=== PATIENT | female | born 1945 | race Caucasian/White ===

== ENCOUNTER 2016-06-25 00:34 | Emergency (ER) | payer MEDICARE, MEDICAID ==
[~2016-06-25] VITALS: Ht 162.6 cm; Wt 56.2 kg
[2016-06-25 00:54] VITALS: BP 206/84
--- NOTE | 2016-06-25 00:54 | NUR ---
PT BIB FAMILY PT AMBUALTORY TO ER BED 1 C/OHIGH BLOOD PRESSURE, TAKES: CRESTOR 5MG, BYSTOLIC 5MG, BENIKAR 40MG. PT AOX4 RR EVEN AND UNLABORED. NO SOB NOTED. NAD NOTED. NO NVD AT THIS TIME. PT NOT DIAPHORETIC. PT GOWNED AND PLACED ON MONTIOR. DR. BOWDEN AT BEDSIDE FOR EVAL.
== END 2016-06-25 01:15 | disposition home or self-care (01) ==
LOC: ER 00:34
DX: I10 Essential (primary) hypertension (principal)
CPT/HCPCS: A4606; Z7502; Z7610

== ENCOUNTER 2020-04-23 15:39 | Emergency (ER) | payer MEDICARE, OTHER ==
[~2020-04-23] VITALS: Ht 157.5 cm; Wt 57.2 kg
[2020-04-23 15:47] VITALS: BP 171/72
--- NOTE | 2020-04-23 15:50 | NUR ---
The patient is in ER for c/o left knee pain started 3days ago worse now/swollen. Patient denies any trauma or injury. Denies SOB. Will continue to monitor.
[2020-04-23] MEDS ORDERED: IBUPROFEN 600 MG TABLET PO ONE (16:30)
[2020-04-23] MEDS ORDERED: ACETAMINOPHEN ES 500 MG TABLET PO ONE (16:30)
[2020-04-23] MEDS ORDERED: IBUPROFEN 600 MG TABLET ONE (16:31)
[2020-04-23] MEDS ORDERED: ACETAMINOPHEN ES 500 MG TABLET ONE (16:31)
[2020-04-23] MEDS ORDERED: LIDOCAINE 1%-EPI 1:100,000 20 ML VIAL ONE (16:38)
--- NOTE | 2020-04-23 17:49 | NUR ---
I&D done by Dr Riley and left knee aspiration fluid taken to the lab.
--- NOTE | 2020-04-23 18:37 | NUR ---
The patient is resting in bed. Denies pain at this time. In room air and denies SOB. Respiration regular and unlabored. Will continue to monitor.
--- NOTE | 2020-04-23 20:26 | NUR ---
Patient discharged to home in stable condition. Written and verbal after care instructions given. Patient verbalizes understanding of instruction.
== END 2020-04-23 20:28 | disposition home or self-care (01) ==
LOC: ER 15:41
DX: M25.462 Effusion, left knee (principal); I10 Essential (primary) hypertension
CPT/HCPCS: 36415; 87070; 89051; 99283; A6407; J3490

== ENCOUNTER 2020-09-21 12:29 | Inpatient (IN) | payer MEDICARE, OTHER ==
[~2020-09-21] VITALS: Ht 154.9 cm; Wt 55.8 kg
--- NOTE | 2020-09-21 13:01 | NUR ---
TO ER BED 1, C/O DIARRHEA WEAKNESS X 3 DAYS S/P TAKING AMOXICILLIN X 3 DAYS FOR COUGH, SALINE LOCK ESTABLISHED, BLOOD DRAWN AND SENT TO LAB
[2020-09-21] MEDS ORDERED: IV NS 0.9% 1,000 ML BAG IV ONE (13:30)
--- NOTE | 2020-09-21 13:30 | NUR ---
MOVE SHEET SUBMITTED.
--- NOTE | 2020-09-21 13:35 | NUR ---
[facility] CALLED FREIGHT ADJUSTER PAGED.
[2020-09-21 13:48] LABS: BASOPHILS % (AUTO) 0.8 % (0.0-2.0); HEMATOCRIT 39 % (33-45); HEMOGLOBIN 13.1 g/dL (11.5-14.8); LYMPHOCYTES % (AUTO) 18.1 % (20.0-44.0); MEAN CORPUSCULAR HGB CONC 34 g/dl (31.0-36.0); MEAN CORPUSCULAR VOLUME 91 fL (82-100); MONOCYTES # (AUTO) 0.7 K/uL (0.1-1.30); NEUTROPHILS # (AUTO) 3.8 K/uL (1.8-8.9); NEUTROPHILS % (AUTO) 69.1 % (43.0-81.0); PLATELET COUNT (AUTO) 144 K/uL (150-450); RED BLOOD CELL COUNT(AUTO) 4.29 MIL/uL (4.0-5.2); WHITE BLOOD COUNT (AUTO) 5.6 K/uL (4.3-11.0)
--- NOTE | 2020-09-21 13:50 | NUR ---
URINE COLLECTED AND SENT TO LAB
--- NOTE | 2020-09-21 13:52 | NUR ---
EMPLOYMENT ASSISTANT AT BEDSIDE
[2020-09-21 14:10] LABS: BILIRUBIN,URINE NEGATIVE (NEGATIVE); COLOR,URINE YELLOW (YELLOW); LEUKOCYTE ESTERASE ,URINE NEGATIVE (NEGATIVE); NITRITE, URINE NEGATIVE (NEGATIVE); PROTEIN,URINE 30 mg/dl (NEGATIVE); UGLUCOSE NEGATIVE (NEGATIVE); UROBILINOGEN,URINE 0.2 EU/dL (0.2)
--- NOTE | 2020-09-21 14:18 | NUR ---
CALLED FOR COVID ANTIGEN SWAB
[2020-09-21] MEDS ORDERED: EVOL140P3 SQ (14:19)
[2020-09-21] MEDS ORDERED: ASPI-1169 PO (14:19)
[2020-09-21] MEDS ORDERED: OLME40TA18 PO (14:19)
[2020-09-21] MEDS ORDERED: ROSU5TAB13 PO (14:19)
[2020-09-21] MEDS ORDERED: NEBI5TAB8 PO (14:19)
[2020-09-21 14:21] LABS: ALANINE AMINOTRANSFERASE 17 U/L (12-78); ALBUMIN 3.4 g/dL (3.4-5.0); ALKALINE PHOSPHATASE 38 U/L (46-116); ASPARTATE AMINOTRANSFERASE 39 U/L (15-37); BILIRUBIN,DIRECT 0.1 mg/dL (0.0-0.2); BILIRUBIN,TOTAL 0.3 mg/dL (0.2-1.0); CALCIUM, SERUM 8.8 mg/dL (8.5-10.1); CARBON DIOXIDE 23 mmol/L (21-32); CHLORIDE 99 mmol/L (98-107); CREATININE 1.5 mg/dL (0.6-1.3); GLUCOSE 137 mg/dL (74-106); POTASSIUM 4.6 mmol/L (3.5-5.1); SODIUM SERUM 134 mmol/L (136-145); UREA NITROGEN, BLOOD 24 mg/dL (7-18)
[2020-09-21] MEDS ORDERED: LOPE2TAB23 PO (14:21)
[2020-09-21] MEDS ORDERED: AMOX1TAB15 PO (14:21)
[2020-09-21 14:32] LABS: BACTERIA,URINE Moderate /HPF (None Seen); RBC,URINE 0-2 /HPF (0-2)
[2020-09-21 14:33] LABS: SQUAMOUS EPITHELIAL CELL,UR Rare /HPF (None Seen)
--- NOTE | 2020-09-21 14:47 | NUR ---
COVID SWAB SENT TO LAB
[2020-09-21] MEDS ORDERED: CEFTRIAXONE 1GM BAG (ER ONLY) 1 GM/50 ML PIGGYBACK IV ONE (15:00)
[2020-09-21] MEDS ORDERED: CEFTRIAXONE 1 G in IV D5W 50 ML IV ONE (15:00)
[2020-09-21] MEDS ORDERED: ONDANSETRON HCL/PF 4 MG/2 ML VIAL IVP PRN (16:00)
--- NOTE | 2020-09-21 16:27 | NUR ---
COVID RESULTED POSITIVE HOUSE SUP INFORMED.
--- NOTE | 2020-09-21 19:19 | NUR ---
GAVE REPORT TO NOC RN
--- NOTE | 2020-09-21 19:27 | NUR ---
pt going to room 107, room being cleaned
--- NOTE | 2020-09-21 20:01 | NUR ---
called in report to Juliana goodman
[2020-09-21 20:20] VITALS: BP 155/77
--- NOTE | 2020-09-21 20:20 | NUR ---
WELDER GAS TUNGSTEN ARC NOTE RECEIVED PATIENT VIA GURNEY. A/OX3. LANGUAGE BARRIER. ABLE TO MAKE BASIC NEEDS KNOWN. TOLERATING ROOM AIR. RESPIRATIONS ARE EVEN AND UNLABORED. NO C/O PAIN AT THIS TIME. IN NO APPARENT DISTRESS. IV ACCESS IN RIGHT HAND PATENT AND SALINE LOCKED. WILL BEGIN IVF. OBTAINED PATIENTS INFORMATION FROM DAUGHTER MIGDALIA . INSIDE TECHNICAL SALES REPRESENTATIVE OBTAINED VITAL SIGNS AND COMPLETED BELONGING LIST. INITIAL PHYSICAL ASSESSMENT COMPETED AT THIS TIME. SKIN ASSESSMENT COMPLETE, SKIN INTACT. BED IS LOW AND LOCKED, HOB ELEVTED IN SEMI FOWLERS, SIDE RAILS UP X2, CALL LIGHT WITHIN REACH. EXPLAINED USE. WILL CONTINUE TO MONITOR THROUGHOUT SHIFT. Addendum: 09/21/20 at 1998 by YASMANI ARANDA RN TELE MONITOR READS SINUS RHYTHM WITH PAC'S
[2020-09-21] MEDS: IV NS 0.9% 1,000 ML IV PRN (20:38)
[2020-09-21] MEDS: ATORVASTATIN 10 MG TABLET PO SCH ×2 (21:07→21:24)
[2020-09-21] MEDS: ACETAMINOPHEN 325 MG TABLET PO PRN (21:07)
[2020-09-21] MEDS: HEPARIN SODIUM, PORCINE 5000 UNITS/1 ML VIAL SQ SCH (21:08)
--- NOTE | 2020-09-21 21:29 | NUR ---
RN NOTE PATIENT REFUSED TO TAKE LIPITOR , STATES SHE ALREADY HAS TAKEN HER CHOLESTEROL MEDICATION FOR TODAY. HNO MEDICATIONS AT BEDSIDE AT THIS TIME.
[2020-09-22] VITALS: BP 104/52
[2020-09-22 04:00] VITALS: BP 122/59
[2020-09-22] MEDS: ACETAMINOPHEN 325 MG TABLET PO PRN (05:09)
[2020-09-22 06:45] LABS: BASOPHILS % (AUTO) 0.5 % (0.0-2.0); EOSINOPHILS % (AUTO) 0.1 % (0.0-6.0); HEMATOCRIT 36 % (33-45); HEMOGLOBIN 12.1 g/dL (11.5-14.8); LYMPHOCYTES # (AUTO) 1.5 K/uL (0.8-4.8); MEAN CORPUSCULAR HGB CONC 34 g/dl (31.0-36.0); MEAN CORPUSCULAR VOLUME 91 fL (82-100); MONOCYTES # (AUTO) 0.4 K/uL (0.1-1.30); MONOCYTES % (AUTO) 7.9 % (2.0-12.0); NEUTROPHILS % (AUTO) 60.5 % (43.0-81.0); PLATELET COUNT (AUTO) 143 K/uL (150-450); RED BLOOD CELL COUNT(AUTO) 3.94 MIL/uL (4.0-5.2)
--- NOTE | 2020-09-22 07:10 | NUR ---
RN NOTE COVID ISOLATION. RESTING IN BED. A/OX3. ON 2L NASAL CANNULA. NO C/O PAIN AT THIS TIME. TYLENOL GIVEN FOR SLIGHT TEMP 100.8 .NO DISTRESS. IV IN RIGHT HAND . BED IS LOW AND LOCKED, HOB ELEVATED IN SEMI FOWLERS, SIDE RAILS UP X2, CALL LIGHT WITHIN REACH. WILL ENDORSE TO ONCOMING SHIFT.
[2020-09-22 07:16] LABS: CALCIUM, SERUM 7.6 mg/dL (8.5-10.1); CREATININE 1.1 mg/dL (0.6-1.3); MAGNESIUM 1.9 mg/dL (1.8-2.4); PHOSPHORUS 3.6 mg/dL (2.5-4.9)
[2020-09-22] MEDS: PANTOPRAZOLE 40 MG TABLET.DR PO SCH (07:52)
[2020-09-22] MEDS: HEPARIN SODIUM, PORCINE 5000 UNITS/1 ML VIAL SQ SCH ×2 (08:14→21:32)
[2020-09-22] MEDS: ASPIRIN 81 MG TAB.CHEW PO SCH (09:56)
--- NOTE | 2020-09-22 12:54 | NUR ---
RN NOTES PATIENT IS A&O X3, ON COVID ISOLATION AT THIS TIME , RESTING IN BED WITH ON AND OF SLEEP , ON 2L NASAL CANNULA COMPLIANT WITH CARE, NO C/O PAIN DURING AM CARE, NO SOB AND NO DISTRESS NOTED, IV INTACT ON RIGHT SIDE, BED IS LOW AND LOCKED, HOB ELEVATED IN SEMI FOWLERS, SIDE RAILS UP X2, CALL LIGHT WITHIN REACH, DAUGHTER CALLS OFTEN -ABLE TO EXPLAIN TO HER ABOUT MOTHERS SITUATION -EXPRESSED UNDERSTANDING, CALL LIGHT IN PT REACH, SAFETY MEASURES IN PLACE, GIVEN ALL MD ORDERS NO ASPIRATION ON WHOLE PO PILLS, WILL CONTINUE TO MONITOR.
[2020-09-22 13:03] LABS: C-REACTIVE PROTEIN 6.7 mg/dL (0.0-0.9)
[2020-09-22] MEDS: CEFTRIAXONE 1 G in IV D5W 50 ML IV SCH (14:48)
--- NOTE | 2020-09-22 19:55 | NUR ---
RN NOTE PATIENT ALERT AND ORIENTED X3. ON O2 2L VIA NASAL CANNULA. RESPIRATIONS EVEN AND UNLABORED. DENIES ANY PAIN OR DISCOMFORT. TELE MONITOR ON, SR 70'S. IV ACCESS ON RIGHT HAND # 20 WITH NS @ 75ML/HR. BED LOCKED AND IN LOWEST POSITION. CALL LIGHT WITHIN REACH. ALL NEEDS ANTICIPATED.
[2020-09-22 20:00] VITALS: BP 179/63
[2020-09-22] MEDS ORDERED: hydrALAZINE HCL 25 MG TABLET PO PRN (20:30)
--- NOTE | 2020-09-22 20:33 | NUR ---
PATIENT NOTED WITH BLOOD PRESSURE 179/63, HR 78. INFORMED DR. MARSH WITH NEW ORDERS NOTED AND CARRIED OUT.
[2020-09-22] MEDS: ATORVASTATIN 10 MG TABLET PO SCH (21:29)
[2020-09-22] MEDS: METOPROLOL TARTRATE 25 MG TABLET PO SCH (21:30)
[2020-09-22] MEDS: IV NS 0.9% 1,000 ML IV PRN (21:30)
[2020-09-23] VITALS: BP 144/82
[2020-09-23 04:00] VITALS: BP 137/58
[2020-09-23 06:35] LABS: BASOPHILS % (AUTO) 0.3 % (0.0-2.0); HEMATOCRIT 36 % (33-45); HEMOGLOBIN 12.2 g/dL (11.5-14.8); LYMPHOCYTES # (AUTO) 1.5 K/uL (0.8-4.8); LYMPHOCYTES % (AUTO) 24.5 % (20.0-44.0); MEAN CORPUSCULAR HGB CONC 34 g/dl (31.0-36.0); MEAN CORPUSCULAR VOLUME 90 fL (82-100); MONOCYTES # (AUTO) 0.6 K/uL (0.1-1.30); MONOCYTES % (AUTO) 9.6 % (2.0-12.0); NEUTROPHILS # (AUTO) 3.9 K/uL (1.8-8.9); NEUTROPHILS % (AUTO) 65.6 % (43.0-81.0); PLATELET COUNT (AUTO) 165 K/uL (150-450); RED BLOOD CELL COUNT(AUTO) 3.96 MIL/uL (4.0-5.2)
--- NOTE | 2020-09-23 06:54 | NUR ---
RN NOTE PATIENT RESTING IN BED COMFORTABLY. ALERT AND ORIENTED X3. NO SIGNS OF RESPIRATORY DISTRESS. ALL NEEDS ATTENDED PROMPTLY. BED LOCKED AND IN LOWEST POSITION. CALL LIGHT WITHIN REACH. WILL ENDORSE TO AM SHIFT.
--- NOTE | 2020-09-23 07:43 | NUR ---
RN OPENING NOTE RECEIVED PATIENT IN BED, ASLEEP, EASILY AWAKEN BY VERBAL AND TACTILE STIMULI. ON O2 2L VIA NASAL CANNULA AT 2LPM, RESPIRATIONS EVEN AND UNLABORED. DENIES ANY PAIN OR DISCOMFORT. TELE MONITOR ON, SR 70'S. IV ACCESS ON RIGHT HAND # 20 WITH NS @ 75ML/HR. SAFETY PRECAUTIONS IN PLACE: BED LOCKED AND IN LOWEST POSITION. CALL LIGHT WITHIN REACH. SIDE RAILS UP X 2. WILL MONITOR PATIENT ACCORDINGLY.
[2020-09-23 08:23] LABS: CALCIUM, SERUM 7.4 mg/dL (8.5-10.1); CREATININE 1.1 mg/dL (0.6-1.3); MAGNESIUM 1.9 mg/dL (1.8-2.4); PHOSPHORUS 2.9 mg/dL (2.5-4.9); POTASSIUM 3.8 mmol/L (3.5-5.1)
[2020-09-23] MEDS: PANTOPRAZOLE 40 MG TABLET.DR PO SCH (08:23)
[2020-09-23] MEDS: ASPIRIN 81 MG TAB.CHEW PO SCH (08:26)
[2020-09-23] MEDS: METOPROLOL TARTRATE 25 MG TABLET PO SCH ×2 (08:26→21:18)
[2020-09-23] MEDS: HEPARIN SODIUM, PORCINE 5000 UNITS/1 ML VIAL SQ SCH (08:27)
[2020-09-23 09:45] VITALS: BP 133/55
[2020-09-23] MEDS: DEXAMETHASONE 4 MG TABLET PO SCH (10:13)
[2020-09-23 10:24] LABS: ABG BASE EXCESS -0.9 mmol/L; ABG OXYGEN SATURATION 94.2 % (92.0-98.5); ABG PCO2 29.6 mmHg (35.0-45.0); ABG PH 7.481 (7.350-7.450); ABG PO2 65.1 mmHg (75.0-100.0); AaDO2 70.8 mmHg; COHb 0.3 % (0.5-1.5); MetHb 0.1 % (0.0-1.5); O2Hb 93.8 % (94.0-97.0); SITE, ABG Right Brachial; VENT MODE, BG 1L NC
--- NOTE | 2020-09-23 10:37 | NUR ---
RN NOTES ABG RESULTS IN, RELAYED TO DR. LUNA.
[2020-09-23] MEDS: ENOXAPARIN SODIUM 40 MG/0.4 ML DISP.SYRIN SQ SCH (12:00)
--- NOTE | 2020-09-23 13:01 | NUR ---
RN NOTES ENOXAPARIN NOT GIVEN, PATIENT RECEIVED HEPARIN DOSE AT 0900.
[2020-09-23 13:38] VITALS: BP 118/51
[2020-09-23] MEDS: CEFTRIAXONE 1 G in IV D5W 50 ML IV SCH (14:12)
[2020-09-23 18:24] VITALS: BP 130/60
--- NOTE | 2020-09-23 18:48 | NUR ---
DRY CELL SEALER CLOSING NOTES PATIENT IN BED, AWAKE, A&O X 4. ON O2 2L VIA NASAL CANNULA AT 2LPM, RESPIRATIONS EVEN AND UNLABORED. DENIES ANY PAIN OR DISCOMFORT. TELE MONITOR ON, SR 60'S. IV ACCESS ON RIGHT HAND # 20 WITH NS @ 75ML/HR. SAFETY PRECAUTIONS IN PLACE: BED LOCKED AND IN LOWEST POSITION. CALL LIGHT WITHIN REACH. SIDE RAILS UP X 2. ALL NEEDS ATTENDED, WILL ENDORSE TO ONCOMING SHIFT FOR ERASMO.
[2020-09-23 20:00] VITALS: BP 156/72
[2020-09-23] MEDS: ATORVASTATIN 10 MG TABLET PO SCH (21:18)
[2020-09-23] MEDS: IV NS 0.9% 1,000 ML IV PRN (22:46)
[2020-09-24] VITALS: BP 155/71
--- NOTE | 2020-09-24 03:13 | NUR ---
RN notes Alert and oriented, able to communicate needs verbally in [place] citizen language but understand a little Mohawk. Ambulatory with assist. On 2 l/m O2 via nasal cannula, tolerating well. No complaint of pain or discomfort. No significant change of condition. Vital signs within normal limits. Kept clean and dry. Will endorse to next shift for continuity of care.
[2020-09-24 04:00] VITALS: BP 131/80
[2020-09-24 06:27] LABS: BASOPHILS % (AUTO) 0.3 % (0.0-2.0); HEMATOCRIT 37 % (33-45); HEMOGLOBIN 12.7 g/dL (11.5-14.8); LYMPHOCYTES # (AUTO) 1.2 K/uL (0.8-4.8); MEAN CORPUSCULAR HGB CONC 34 g/dl (31.0-36.0); MEAN CORPUSCULAR VOLUME 90 fL (82-100); MONOCYTES # (AUTO) 0.6 K/uL (0.1-1.30); NEUTROPHILS # (AUTO) 6.8 K/uL (1.8-8.9); NEUTROPHILS % (AUTO) 78.7 % (43.0-81.0); PLATELET COUNT (AUTO) 184 K/uL (150-450); RED BLOOD CELL COUNT(AUTO) 4.17 MIL/uL (4.0-5.2); WHITE BLOOD COUNT (AUTO) 8.7 K/uL (4.3-11.0)
[2020-09-24 07:00] LABS: CALCIUM, SERUM 7.5 mg/dL (8.5-10.1); CREATININE 0.8 mg/dL (0.6-1.3); MAGNESIUM 2.1 mg/dL (1.8-2.4); PHOSPHORUS 2.2 mg/dL (2.5-4.9); POTASSIUM 3.7 mmol/L (3.5-5.1)
--- NOTE | 2020-09-24 07:15 | NUR ---
PLANNED GIVING OFFICER NOTES PATIENT IN BED RESTING, AWAKE AND VERBALLY RESPONSIVE, A&O X 4. PORTUGUESE-SPEAKING, UNDERSTANDS LITTLE AZERI. ON O2 AT 2L VIA NASAL CANNULA, RESPIRATIONS EVEN AND UNLABORED. ON TELE MONITORING, READING OF SR W/ HEART RATE IN THE 60'S. IV ACCESS ON RIGHT HAND # 20 INTACT AND PATENT, IVF OF NS @ 75ML/HR, INFUSING WELL. SAFETY PRECAUTIONS IN PLACE: BED LOCKED AND IN LOWEST POSITION. CALL LIGHT WITHIN REACH. SIDE RAILS UP X 2. WILL CONTINUE TO MONITOR.
[2020-09-24 08:00] VITALS: BP 155/70
[2020-09-24] MEDS ORDERED: K PHOS NEUTRAL 250 MG TABLET PO ONE (08:00)
[2020-09-24] MEDS: ASPIRIN 81 MG TAB.CHEW PO SCH (08:03)
[2020-09-24] MEDS: PANTOPRAZOLE 40 MG TABLET.DR PO SCH (08:04)
[2020-09-24] MEDS: METOPROLOL TARTRATE 25 MG TABLET PO SCH (08:04)
[2020-09-24] MEDS: DEXAMETHASONE 4 MG TABLET PO SCH (08:04)
[2020-09-24] MEDS: ENOXAPARIN SODIUM 40 MG/0.4 ML DISP.SYRIN SQ SCH (11:03)
--- NOTE | 2020-09-24 11:50 | NUR ---
RN NOTES SPOKE W/ PATIENT'S DTR MIGDALIA ([phone]) AND INFORMED ABOUT PATIENT'S CURRENT CONDITION/PROGRESS AND PLAN OF CARE.
[2020-09-24 12:00] VITALS: BP 160/66
[2020-09-24] MEDS ORDERED: BENZONATATE 100 MG CAPSULE PO PRN (13:00)
[2020-09-24] MEDS ORDERED: BENZ-13 PO (13:01)
[2020-09-24] MEDS ORDERED: DEXA4TAB PO (13:01)
--- NOTE | 2020-09-24 13:53 | NUR ---
RN NOTES SPOKE W/ PATIENT AND PATIENT'S DTR ABOUT POSSIBLE DISCHARGE TODAY TO HOME. PER PATIENT AND DTR, PATIENT STILL FEELS WEAK AND NO ONE CAN TAKE CARE OF HER AT HOME. INFORMED HORTICULTURAL MANAGER CIPRIANO ABOUT PATIENT'S CASE AND WILL CHECK INSURANCE FOR PLACEMENT.
[2020-09-24] MEDS: CEFTRIAXONE 1 G in IV D5W 50 ML IV SCH (14:23)
--- NOTE | 2020-09-24 14:57 | NUR ---
RN NOTES SPOKE Danilo RICH, DIRECTOR SPECIAL EDUCATION, AND WAS INFORMED THAT PATIENT IS ACCEPTED FOR PLACEMENT AT [facility]; CM TO INFORM DTR.
[2020-09-24 16:00] VITALS: BP 153/65
--- NOTE | 2020-09-24 16:57 | NUR ---
RN NOTES PATIENT REPORT AND DISCHARGE INSTRUCTIONS GIVEN TO KEO RIBEIRO PICKER AND PACKER AT [facility].
--- NOTE | 2020-09-24 17:38 | NUR ---
RN NOTES PATIENT WAS SEEN BY DR. JIMENEZ TODAY W/ ORDER FOR DISCHARGE. PLACEMENT FOR SNF ARRANGED BY HYDROMETER CALIBRATOR, WILL GO TO [facility] ROOM 215-B. DISCHARGE FORM AND BELONGINGS LIST FORM SIGNED BY PATIENT AND ALL BELONGINGS ACCOUNTED FOR. NAME ARMBAND RETAINED; IV LINE REMOVED. NO SKIN ISSUES NOTED.
--- NOTE | 2020-09-24 17:42 | NUR ---
RN NOTES 2 EMT'S CURRENTLY AT BEDSIDE TO PICKUP PATIENT. BEDSIDE REPORT AND ENDORSEMENT DONE.
--- NOTE | 2020-09-24 17:50 | NUR ---
RN NOTES TRANSPORTED VIA GURNEY. CHARGE NURSE AND MD AWARE OF DISCHARGE.
== END 2020-09-24 20:01 | DRG 871 ==
LOC: ER 12:29 → TRANSITION 18:58 → MEDSG1 19:07 → TELE1 23:14
PROVIDERS: ADMIT Nurse Practitioner Acute Care; ATTEND Nurse Practitioner Acute Care
DX: A41.89 Other specified sepsis (principal); U07.1 COVID-19; N17.0 Acute kidney failure with tubular necrosis; E87.1 Hypo-osmolality and hyponatremia; E86.0 Dehydration; I10 Essential (primary) hypertension; E78.00 Pure hypercholesterolemia, unspecified; Z79.82 Long term (current) use of aspirin; Z79.899 Other long term (current) drug therapy; E78.5 Hyperlipidemia, unspecified; I95.9 Hypotension, unspecified; I70.0 Atherosclerosis of aorta; R09.02 Hypoxemia; J06.9 Acute upper respiratory infection, unspecified
CPT/HCPCS: 36415; 36600; 71045-TC; 80048-TC; 80061-TC; 80076-TC; 81001; 82728-TC; 83605-TC; 83615-TC; 83735-TC; 84100-TC; 84484-TC; 85025-TC; 85378-TC; 85730-TC; 86140-TC; 87040-TC; 87081-TC; 87086-TC; 97112-TC; 97116-TC; 97530-TC; C9803; G0378; J0696; J1644; J1650; J2405; J7030; J7060; J8540

== ENCOUNTER 2020-09-26 20:07 | Inpatient (IN) | payer MEDICARE, OTHER ==
[~2020-09-26] VITALS: Ht 162.6 cm; Wt 53.2 kg
[~2020-09-26 20:07] MED LIST: ASPI-1169 PO; BENZ-13 PO; DEXA4TAB PO; EVOL140P3 SQ; LOPE2TAB23 PO; NEBI5TAB8 PO; OLME40TA18 PO; ROSU5TAB13 PO
--- NOTE | 2020-09-26 20:24 | NUR ---
PATIENT JAUN JOE FROM [facility] WITH C/O LOW O2 SAT. DIAGNOSED W/ COVID 19 6 DAYS AGO. PATIENT IS A/O, ANSWERING STAFF. CONNECTED TO OXYGEN. PATIENT CONNECTED TO PERSONAL FITNESS MANAGER AND POX.
--- NOTE | 2020-09-26 20:25 | NUR ---
URINE COLLECTED AND SENT TO LAB
[2020-09-26 20:47] LABS: BASOPHILS % (AUTO) 0.1 % (0.0-2.0); HEMATOCRIT 37 % (33-45); HEMOGLOBIN 12.4 g/dL (11.5-14.8); LYMPHOCYTES # (AUTO) 0.7 K/uL (0.8-4.8); LYMPHOCYTES % (AUTO) 6.5 % (20.0-44.0); MEAN CORPUSCULAR HGB CONC 34 g/dl (31.0-36.0); MEAN CORPUSCULAR VOLUME 90 fL (82-100); MONOCYTES # (AUTO) 0.9 K/uL (0.1-1.30); MONOCYTES % (AUTO) 7.9 % (2.0-12.0); NEUTROPHILS # (AUTO) 9.4 K/uL (1.8-8.9); NEUTROPHILS % (AUTO) 85.5 % (43.0-81.0); PLATELET COUNT (AUTO) 287 K/uL (150-450); RED BLOOD CELL COUNT(AUTO) 4.06 MIL/uL (4.0-5.2); WHITE BLOOD COUNT (AUTO) 10.9 K/uL (4.3-11.0)
[2020-09-26 20:47] LABS: BILIRUBIN,URINE NEGATIVE (NEGATIVE); COLOR,URINE YELLOW (YELLOW); LEUKOCYTE ESTERASE ,URINE NEGATIVE (NEGATIVE); NITRITE, URINE NEGATIVE (NEGATIVE); PROTEIN,URINE 30 mg/dl (NEGATIVE); UGLUCOSE NEGATIVE (NEGATIVE)
[2020-09-26 20:55] LABS: ABG BASE EXCESS 0.3 mmol/L; ABG OXYGEN SATURATION 93.8 % (92.0-98.5); ABG PCO2 32.2 mmHg (35.0-45.0); ABG PH 7.475 (7.350-7.450); AaDO2 180.2 mmHg; COHb 0.3 % (0.5-1.5); MetHb 0.4 % (0.0-1.5); O2Hb 93.1 % (94.0-97.0); SITE, ABG Right Radial; VENT MODE, BG 5LSM
[2020-09-26 21:02] LABS: D-DIMER 3.47 mg/L(FEU (0.17-0.50)
[2020-09-26 21:03] LABS: BACTERIA,URINE RARE /HPF (None Seen); URINE AMORPHOUS URATE Few /HPF (None Seen)
[2020-09-26 21:11] LABS: ALANINE AMINOTRANSFERASE 32 U/L (12-78); ALBUMIN 2.6 g/dL (3.4-5.0); ALKALINE PHOSPHATASE 53 U/L (46-116); ASPARTATE AMINOTRANSFERASE 60 U/L (15-37); BILIRUBIN,TOTAL 0.3 mg/dL (0.2-1.0); CALCIUM, SERUM 8.2 mg/dL (8.5-10.1); CARBON DIOXIDE 26 mmol/L (21-32); CHLORIDE 104 mmol/L (98-107); GLUCOSE 207 mg/dL (74-106); POTASSIUM 4.1 mmol/L (3.5-5.1); SODIUM SERUM 139 mmol/L (136-145); TOTAL PROTEIN, SERUM 6.3 g/dL (6.4-8.2); UREA NITROGEN, BLOOD 25 mg/dL (7-18)
--- NOTE | 2020-09-26 21:15 | NUR ---
DR. TILLEY PAGED PER BREANA LI ORDER.
[2020-09-26] MEDS ORDERED: ENOXAPARIN SODIUM 60 MG/0.6 ML DISP.SYRIN SQ ONE (21:30)
[2020-09-26] MEDS ORDERED: DEXAMETHASONE SOD PHOSPHATE 10 MG/ML VIAL IV ONE (21:30)
--- NOTE | 2020-09-26 21:54 | NUR ---
104 IS BED PLACEMENT VIA NURSING PUBLICATIONS EDITOR.
[2020-09-26 22:00] LABS: CREATINE KINASE, TOTAL 73 U/L (26-192); FERRITIN 3187 ng/mL (8-388)
[2020-09-26] MEDS ORDERED: CEFTRIAXONE 1 G in IV D5W 50 ML IV ONE (22:00)
[2020-09-26] MEDS ORDERED: AZITHROMYCIN 500 MG in IV D5W 250 ML IV ONE (22:00)
[2020-09-26 22:01] LABS: C-REACTIVE PROTEIN 8.2 mg/dL (0.0-0.9)
[2020-09-26] MEDS ORDERED: AZITHROMYCIN 500 MG VIAL ONE (22:05)
[2020-09-26] MEDS ORDERED: CEFTRIAXONE 1GM BAG (ER ONLY) 50 ML IV ONE (22:05)
--- NOTE | 2020-09-26 22:21 | NUR ---
REPORT GIVEN TO KEO GRUBER
--- NOTE | 2020-09-26 22:30 | NUR ---
HEEL CEMENTER NOTE RECEIVED PATIENT VIA RCARLOS. A/OX3. MALTESE SPEAKING, ABLE TO MAKE BASIC NEEDS KNOWN. ON OXYGEN 5L/MIN. RESPIRATIONS ARE EVEN AND UNLABORED. NO S/S SOB AT THIS TIME. PATIENT HAD NONPRODUCTIVE COUGH. NO C/O PAIN AT THIS TIME. IN NO APPARENT DISTRESS. EXTERNAL TELE MONITOR REDS SINUS RHYTHM.. IV ACCESS IN LEFT WRIST #18 CURRENTLY RUNNING AZITHROMAX. BALL POINT SPLITTER OBTAINED VITALS AND COMPLETED BELONGING LIST.. INATAL PHYSICAL ASSESSMENT COMPLETED. SKIN ASSESSMENT COMPETE, SKIN INTACT. BED IS LOW AND COKED, HOB ELEVATED IN SEMI FOWLERS, GABRIELLA RAILS UP X2, CALL LIGHT WITHIN REACH, INFORMED USE. WILL CONTINUE TO MONITOR THROUGHOUT SHIFT.
--- NOTE | 2020-09-26 22:39 | NUR ---
PATIENT TRANSFERRED UNDER ACLS.
[2020-09-26] MEDS ORDERED: MORPHINE SULFATE INJ 2 MG/ML DISP.SYRIN IV PRN (23:00)
[2020-09-26] MEDS: ENOXAPARIN SODIUM 40 MG/0.4 ML DISP.SYRIN SQ SCH (23:00)
[2020-09-26] MEDS ORDERED: ONDANSETRON HCL/PF 4 MG/2 ML VIAL IVP PRN (23:00)
[2020-09-26] MEDS ORDERED: Z GUARD REMEDY 2 OZ OINT TP PRN (23:00)
[2020-09-26 23:02] VITALS: BP 165/73
[2020-09-26 23:29] LABS: BILIRUBIN,DIRECT 0.1 mg/dL (0.0-0.2)
[2020-09-26] MEDS ORDERED: ALBUTEROL FS 2.5 MG/3 ML VIAL.NEB NEB PRN (23:30)
[2020-09-27] MEDS: hydrALAZINE HCL 25 MG TABLET PO PRN ×2 (00:39→10:51)
--- NOTE | 2020-09-27 00:39 | NUR ---
RN NOTE ADMINISTERED PRN APRESOLINE FOR BP 158/77.
[2020-09-27 04:00] VITALS: BP 135/75
[2020-09-27 05:36] LABS: BASOPHILS % (AUTO) 0.1 % (0.0-2.0); HEMATOCRIT 37 % (33-45); HEMOGLOBIN 12.4 g/dL (11.5-14.8); LYMPHOCYTES # (AUTO) 0.9 K/uL (0.8-4.8); LYMPHOCYTES % (AUTO) 10.1 % (20.0-44.0); MEAN CORPUSCULAR HGB CONC 34 g/dl (31.0-36.0); MEAN CORPUSCULAR VOLUME 90 fL (82-100); MONOCYTES # (AUTO) 0.6 K/uL (0.1-1.30); MONOCYTES % (AUTO) 6.6 % (2.0-12.0); NEUTROPHILS # (AUTO) 7.6 K/uL (1.8-8.9); NEUTROPHILS % (AUTO) 83.2 % (43.0-81.0); PLATELET COUNT (AUTO) 284 K/uL (150-450); RED BLOOD CELL COUNT(AUTO) 4.05 MIL/uL (4.0-5.2); WHITE BLOOD COUNT (AUTO) 9.1 K/uL (4.3-11.0)
[2020-09-27 06:31] LABS: ALANINE AMINOTRANSFERASE 27 U/L (12-78); ALBUMIN 2.4 g/dL (3.4-5.0); ALKALINE PHOSPHATASE 49 U/L (46-116); ASPARTATE AMINOTRANSFERASE 44 U/L (15-37); BILIRUBIN,TOTAL 0.3 mg/dL (0.2-1.0); CALCIUM, SERUM 7.8 mg/dL (8.5-10.1); CARBON DIOXIDE 26 mmol/L (21-32); CHLORIDE 106 mmol/L (98-107); CREATININE 0.9 mg/dL (0.6-1.3); GLUCOSE 179 mg/dL (74-106); MAGNESIUM 2.5 mg/dL (1.8-2.4); PHOSPHORUS 3.4 mg/dL (2.5-4.9); POTASSIUM 4.5 mmol/L (3.5-5.1); SODIUM SERUM 141 mmol/L (136-145); TOTAL PROTEIN, SERUM 5.8 g/dL (6.4-8.2); UREA NITROGEN, BLOOD 21 mg/dL (7-18)
[2020-09-27 07:05] LABS: CHOLESTEROL 99 mg/dL (<200); FERRITIN 2927 ng/mL (8-388); HDL CHOLESTEROL 10 mg/dL (40-60); LDL 53 mg/dL (0-99); THYROID STIMULATING HORMONE 0.162 uIU/mL (0.358-3.74); TRIGLYCERIDES 200 mg/dL (30-150)
--- NOTE | 2020-09-27 07:20 | NUR ---
RN OPENING NOTE RECEIVED PATIENT IN BED. A/O X 3. ON 02 5 LPM VIA NC. NO S/S OF RESPIRATORY DISTRESS. TELE READING SHOWS SR 70'S. DENIES ANY PAIN OR DISCOMFORT AT THIS TIME. IV ACCESS ON L WRIST #18, INTACT AND PATENT. SAFETY MEASURES MAINTAINED AND FALL RISK OBSERVED. BED IN LOWEST POSITION, BRAKES LOCKED. SIDE RAILS UP X2. CALL LIGHT WITHIN REACH. WILL CONTINUE PLAN OF CARE.
--- NOTE | 2020-09-27 07:20 | NUR ---
RN NOTE ON COVID ISOLATION. A/OX3. REMAINS ON OXYGEN 5L/MIN. NO RESP DISTRESS. NO DISTRESS. TELE MONITOR SINUS RHYTHM. IV LEFT WRIST #18. BED REMAINS LOW AND LOCKED, HOB ELEVATED IN SEMI FOWLERS, SIDE RAILS UP X2, CALL LIGHT WITHIN REACH. WILL ENDORSE TO INCOMING SHIFT.
[2020-09-27] MEDS: METOPROLOL TARTRATE 25 MG TABLET PO SCH ×2 (08:09→22:15)
[2020-09-27] MEDS: LOSARTAN POTASSIUM 50 MG TABLET PO SCH (08:10)
[2020-09-27] MEDS: ASPIRIN 81 MG TAB.CHEW PO SCH (08:10)
[2020-09-27] MEDS: PANTOPRAZOLE 40 MG TABLET.DR PO SCH (08:11)
[2020-09-27] MEDS: DEXAMETHASONE SOD PHOSPHATE 10 MG/ML VIAL IV SCH (08:11)
[2020-09-27] MEDS: ENSURE ENLIVE 237 ML LIQUID (VANILLA) PO SCH ×2 (08:56→16:12)
--- NOTE | 2020-09-27 10:51 | NUR ---
RN NOTE BP OF 163/73. APRESOLINE 25 MG PO PRN GIVEN.
[2020-09-27] MEDS ORDERED: REMDESIVIR (CHARGED) 200 MG, *LOADING DOSE 1 EA in IV NS 0.9% 210 ML IV ONE (12:00)
[2020-09-27] MEDS ORDERED: BENZONATATE 100 MG CAPSULE PO PRN (14:00)
--- NOTE | 2020-09-27 17:56 | NUR ---
RN CLOSING NOTE PATIENT RESTING IN BED. A/O X 3. AMBULATORY WITH ASSIST. ON 02 5 LPM VIA NC. NO SOB NOTED. NO S/S OF RESPIRATORY DISTRESS. TELE READING SHOWS SR 70'S. NO REPORTS OF ANY PAIN OR DISCOMFORT AT THIS TIME. IV ACCESS ON L WRIST #18, INTACT AND PATENT. NO SIGNS OF INFILTRATION. DUE MEDS GIVEN ORDERED. ALL NEEDS HAVE BEEN MET AND ATTENDED. SAFETY MEASURES MAINTAINED AND FALL RISK OBSERVED. BED IN LOWEST POSITION, BRAKES LOCKED. SIDE RAILS UP X2. KEPT CALL LIGHT WITHIN REACH. WILL ENDORSE CONTINUITY OF CARE TO ONCOMING SHIFT.
[2020-09-27 20:00] VITALS: BP 177/77
--- NOTE | 2020-09-27 20:00 | NUR ---
OTR FLATBED DRIVER NOTE PT IN BED AWAKE. A/O X 3, NO SOB NOTED. NO DISTRESS OR DISCOMFORT NOTED. PT HAS PRODUCTIVE COUGH. ON 5L N/C O2 SAT 93%. SL IN LT WRIST INTACT AND PATENT. ON TELE MONITOR SR 79. SIDE RAILS UP X 3 AND CALL LIGHT WITHIN REACH. CONTINUE TO MONITOR HER.
[2020-09-27] MEDS: ENOXAPARIN SODIUM 40 MG/0.4 ML DISP.SYRIN SQ SCH (21:00)
[2020-09-27] MEDS ORDERED: TOCILIZUMAB 400 MG in IV NS 0.9% 80 ML IV ONE (21:30)
[2020-09-27] MEDS: CEFTRIAXONE 1 G in IV D5W 50 ML IV SCH (22:20)
[2020-09-27] MEDS: AZITHROMYCIN 500 MG in IV D5W 250 ML IV SCH (23:00)
[2020-09-28] VITALS: BP 180/56
[2020-09-28] MEDS: hydrALAZINE HCL 25 MG TABLET PO PRN (00:53)
--- NOTE | 2020-09-28 01:00 | NUR ---
ON CALL NOTE RAPID COVID 19 SPECIMEN COLLECTED AND SENT TO LAB. ALSO HYDRALAZINE 25 MG PO GIVEN FOR HIGH B/P. PT IV SITE GOT INFILTRATED. REMOVED THE SL AND SECURED WITH 2X2 GAUZE. PT IS HARD STICK. CALLED ER NURSE FOR HELP.
--- NOTE | 2020-09-28 02:00 | NUR ---
WASH DRILLER NOTE PT RAPID COVID RESULT CAME BACK POSITIVE. DR MARSH INFORMED, NO NEW ORDER.
[2020-09-28] MEDS: ACETAMINOPHEN 325 MG TABLET PO PRN (02:22)
[2020-09-28 04:00] VITALS: BP 147/60
[2020-09-28 06:20] LABS: BASOPHILS % (AUTO) 0.1 % (0.0-2.0); HEMATOCRIT 35 % (33-45); HEMOGLOBIN 11.5 g/dL (11.5-14.8); LYMPHOCYTES # (AUTO) 1.1 K/uL (0.8-4.8); LYMPHOCYTES % (AUTO) 9.6 % (20.0-44.0); MEAN CORPUSCULAR HGB CONC 33 g/dl (31.0-36.0); MEAN CORPUSCULAR VOLUME 91 fL (82-100); MONOCYTES # (AUTO) 0.8 K/uL (0.1-1.30); MONOCYTES % (AUTO) 6.6 % (2.0-12.0); NEUTROPHILS # (AUTO) 9.5 K/uL (1.8-8.9); NEUTROPHILS % (AUTO) 83.7 % (43.0-81.0); PLATELET COUNT (AUTO) 323 K/uL (150-450); RED BLOOD CELL COUNT(AUTO) 3.86 MIL/uL (4.0-5.2); WHITE BLOOD COUNT (AUTO) 11.4 K/uL (4.3-11.0)
--- NOTE | 2020-09-28 06:26 | NUR ---
BINDERY MACHINE SETTER NOTE PT IN BED ASLEEP, AROUSABLE. NO DISTRESS OR DISCOMFORT NOTED. NO S/S OF PAIN NOTED. RT WRIST SL INTACT AND PATENT. ON TELE SR 70'S. SIDE RAILS UP X 2 AND CALL LIGHT WITHIN REACH. WILL ENDORSE TO DAY SHIFT NURSE FOR CONTINUE TO CARE.
--- NOTE | 2020-09-28 07:10 | NUR ---
RN NOTE PATIENT OBSERVED IN BED AWAKE, ALERT AND ORIENTED X4, ON NC @5LPM O2 SAT OF 97% AT THIS TIME BREATHING EVEN AND UNLABORED, ON TELE MONITOR SR HR OF 77, WITH RIGHT WRIST G22 IV PATENT FLUSHING WELL, ON REMDESIVIR TREATMENT, WILL CONTINUE TO MONITOR, BED WHEEL LOCK, SAFETY MEASURE OBSERVED, CALL LIGHT WITHIN REACH.
[2020-09-28 07:32] LABS: ALBUMIN 2.3 g/dL (3.4-5.0); BILIRUBIN,DIRECT 0.1 mg/dL (0.0-0.2); BILIRUBIN,TOTAL 0.2 mg/dL (0.2-1.0); CALCIUM, SERUM 7.9 mg/dL (8.5-10.1); MAGNESIUM 2.4 mg/dL (1.8-2.4); PHOSPHORUS 3.1 mg/dL (2.5-4.9); POTASSIUM 4.2 mmol/L (3.5-5.1); TOTAL PROTEIN, SERUM 5.5 g/dL (6.4-8.2)
[2020-09-28 08:00] VITALS: BP 137/64
[2020-09-28] MEDS: LOSARTAN POTASSIUM 50 MG TABLET PO SCH (08:34)
[2020-09-28] MEDS: DEXAMETHASONE SOD PHOSPHATE 10 MG/ML VIAL IV SCH (08:34)
[2020-09-28] MEDS: PANTOPRAZOLE 40 MG TABLET.DR PO SCH (08:34)
[2020-09-28] MEDS: ASPIRIN 81 MG TAB.CHEW PO SCH (08:34)
[2020-09-28] MEDS: METOPROLOL TARTRATE 25 MG TABLET PO SCH ×2 (08:35→21:37)
[2020-09-28] MEDS: ENSURE ENLIVE 237 ML LIQUID (VANILLA) PO SCH ×2 (08:35→17:03)
[2020-09-28 11:01] LABS: C-REACTIVE PROTEIN 3.6 mg/dL (0.0-0.9)
[2020-09-28 12:00] VITALS: BP 139/64
[2020-09-28] MEDS: REMDESIVIR (CHARGED) 100 MG in IV NS 0.9% 100 ML IV SCH (12:24)
--- NOTE | 2020-09-28 13:00 | NUR ---
RN NOTE SEEN BY LANCE JACKSON, NEW ORDERS NOTED AND CARRIED OUT
[2020-09-28 16:00] VITALS: BP 139/64
--- NOTE | 2020-09-28 19:15 | NUR ---
RN NOTE PATIENT OBSERVED IN BED AWAKE, ALERT AND ORIENTED X4, ON NC @5LPM O2 SAT OF 95% AT THIS TIME BREATHING EVEN AND UNLABORED, ON TELE MONITOR SR HR OF 77, WITH RIGHT WRIST G22 IV PATENT FLUSHING WELL, ON REMDESIVIR TREATMENT NO ASE NOTED,ON DVT PPX NO BLEEDING NOTED, WILL CONTINUE TO MONITOR, BED WHEEL LOCK, SAFETY MEASURE OBSERVED, CALL LIGHT WITHIN REACH.
[2020-09-28 20:00] VITALS: BP 109/70
--- NOTE | 2020-09-28 20:00 | NUR ---
RN NOTE PATIENT IN BED A/O X3, ON NC @5LPM O2 SAT > 94%, NO SOB/ACUTE DISTRESS NOTED,ON TELE MONITOR SR HR OF 70S,IV ACCESS RIGHT WRIST G22, PATENT AND INTACT, ALL SAFETY PRECAUTIONS IN PLACED, CALL LIGHT WITHIN REACH, WILL CONTINUE TO MONITOR CLOSELY.
[2020-09-28] MEDS: ENOXAPARIN SODIUM 40 MG/0.4 ML DISP.SYRIN SQ SCH (21:38)
[2020-09-28] MEDS: CEFTRIAXONE 1 G in IV D5W 50 ML IV SCH (21:40)
[2020-09-28] MEDS: AZITHROMYCIN 500 MG in IV D5W 250 ML IV SCH (22:25)
[2020-09-29] VITALS: BP 120/69
[2020-09-29 05:14] VITALS: BP 144/62
[2020-09-29 06:12] LABS: BASOPHILS % (AUTO) 0.4 % (0.0-2.0); HEMATOCRIT 36 % (33-45); HEMOGLOBIN 12.1 g/dL (11.5-14.8); LYMPHOCYTES # (AUTO) 1.2 K/uL (0.8-4.8); LYMPHOCYTES % (AUTO) 11.9 % (20.0-44.0); MEAN CORPUSCULAR HGB CONC 33 g/dl (31.0-36.0); MEAN CORPUSCULAR VOLUME 90 fL (82-100); MONOCYTES # (AUTO) 0.7 K/uL (0.1-1.30); MONOCYTES % (AUTO) 6.5 % (2.0-12.0); NEUTROPHILS # (AUTO) 8.4 K/uL (1.8-8.9); NEUTROPHILS % (AUTO) 81.2 % (43.0-81.0); PLATELET COUNT (AUTO) 365 K/uL (150-450); RED BLOOD CELL COUNT(AUTO) 4.03 MIL/uL (4.0-5.2); WHITE BLOOD COUNT (AUTO) 10.3 K/uL (4.3-11.0)
--- NOTE | 2020-09-29 06:26 | NUR ---
RN NOTE PATIENT IN BED ASLEEP, AROUSES TO VERBAL STIMULI, ON NC @5LPM O2 SAT > 94%, NO SOB/ACUTE DISTRESS NOTED DURING THE NIGHT, NO EPISODES OF DESATURATION, ALL SAFETY PRECAUTIONS IN PLACED, NO SIGNIFICANT CHANGE IN CONDITION, CALL LIGHT WITHIN REACH, WILL ENDORSE CONTINUITY OFF CARE TO ONCOMING NURSE.
[2020-09-29 07:25] LABS: ALBUMIN 2.5 g/dL (3.4-5.0); BILIRUBIN,DIRECT 0.1 mg/dL (0.0-0.2); BILIRUBIN,TOTAL 0.4 mg/dL (0.2-1.0); CALCIUM, SERUM 8.3 mg/dL (8.5-10.1); CREATININE 0.9 mg/dL (0.6-1.3); TOTAL PROTEIN, SERUM 5.9 g/dL (6.4-8.2)
--- NOTE | 2020-09-29 07:48 | NUR ---
RN NOTE PATIENT OBSERVED IN BED AWAKE, ALERT AND ORIENTED X4, ON NC @5LPM O2 SAT OF 96% AT THIS TIME BREATHING EVEN AND UNLABORED WILL TITRATE O2 TOLERATED, ON TELE MONITOR SR HR OF 81, WITH RIGHT WRIST G22 IV PATENT FLUSHING WELL, ON REMDESIVIR TREATMENT NO ASE NOTED, ON DVT PPX NO BLEEDING NOTED, WILL CONTINUE TO MONITOR, BED WHEEL LOCK, SAFETY MEASURE OBSERVED, CALL LIGHT WITHIN REACH.
[2020-09-29 08:00] VITALS: BP 147/71
[2020-09-29] MEDS: PANTOPRAZOLE 40 MG TABLET.DR PO SCH (08:06)
[2020-09-29] MEDS: ENSURE ENLIVE 237 ML LIQUID (VANILLA) PO SCH ×2 (08:53→16:01)
[2020-09-29] MEDS: ASCORBIC ACID 500 MG TABLET PO SCH (08:56)
[2020-09-29] MEDS: ASPIRIN 81 MG TAB.CHEW PO SCH (08:57)
[2020-09-29] MEDS: METOPROLOL TARTRATE 25 MG TABLET PO SCH ×2 (08:57→20:47)
[2020-09-29] MEDS: LOSARTAN POTASSIUM 50 MG TABLET PO SCH (08:57)
[2020-09-29] MEDS: CHOLECALCIFEROL 1,000 UNIT TABLET (VIT D3) PO SCH (08:57)
[2020-09-29] MEDS: DEXAMETHASONE SOD PHOSPHATE 10 MG/ML VIAL IV SCH (08:57)
[2020-09-29] MEDS: ZINC SULFATE 220 MG CAPSULE PO SCH (08:57)
[2020-09-29] MEDS ORDERED: CHOLECALCIFEROL (VITAMIN D 3) 400 UNIT TABLET PO SCH (11:00)
[2020-09-29] MEDS: REMDESIVIR (CHARGED) 100 MG in IV NS 0.9% 100 ML IV SCH (11:52)
[2020-09-29 12:00] VITALS: BP 124/83
--- NOTE | 2020-09-29 12:00 | NUR ---
RN NOTE PATIENT SEEN BY LANCE JACKSON, UPDATED REGARDING PATIENT CURRENT STATUS.
[2020-09-29 12:04] LABS: C-REACTIVE PROTEIN 2.8 mg/dL (0.0-0.9)
--- NOTE | 2020-09-29 13:13 | NUR ---
patient room air sat 86% at rest ,need home o2 per ,cm notified.
[2020-09-29 16:00] VITALS: BP 141/88
--- NOTE | 2020-09-29 18:49 | NUR ---
RN NOTE PATIENT OBSERVED IN BED AWAKE, ALERT AND ORIENTED X4, ON NC @4LPM O2 SAT OF 96% AT THIS TIME BREATHING EVEN AND UNLABORED WILL TITRATE O2 TOLERATED, ON TELE MONITOR SR HR OF 71, WITH RIGHT WRIST G22 IV PATENT FLUSHING WELL, 2ND DOSE OF REMDESIVIR TREATMENT GIVEN NO ASE NOTED, ON DVT PPX NO BLEEDING NOTED, WILL CONTINUE TO MONITOR, BED WHEEL LOCK, SAFETY MEASURE OBSERVED, CALL LIGHT WITHIN REACH. WILL ENDOSE TO NOC SHIFT
--- NOTE | 2020-09-29 19:00 | NUR ---
RN OPENING NOTE RECEIVED PT AWAKE IN BED. A/OX3. PT STABLE ON 4L OXYGEN VIA NC, SR @61, NO SOB OR RESPIRATORY DISTRESS NOTED. NO C/O PAIN AT THIS TIME. IV ACCESS IN R WRIST G#22. IV IS INTACT, PATENT AND FLUSHING WELL. SAFETY MEASURES MAINTAINED AT ALL TIMES. BED IN LOWEST LOCKED POSITION, HOB ELEVATED, SIDE RAILS UPX2. CALL LIGHT AND TABLE WITHIN REACH. WILL CONTINUE WITH PLAN OF CARE.
[2020-09-29 20:00] VITALS: BP 166/81
[2020-09-29] MEDS: ENOXAPARIN SODIUM 40 MG/0.4 ML DISP.SYRIN SQ SCH (20:49)
[2020-09-29] MEDS: CEFTRIAXONE 1 G in IV D5W 50 ML IV SCH (21:51)
[2020-09-29] MEDS: AZITHROMYCIN 500 MG in IV D5W 250 ML IV SCH (23:02)
[2020-09-30] VITALS (7 sets, daily range): BP systolic 135–178; BP diastolic 69–88
[2020-09-30] MEDS: hydrALAZINE HCL 25 MG TABLET PO PRN ×3 (01:48→11:16)
--- NOTE | 2020-09-30 01:48 | NUR ---
PT BP 178/78, RR 20, T 97.5, 02 SAT 96% ON 4L OXYGEN VIA NC. HYDRALAZINE 25MG PO Q6H PRN SBP> ADMINISTERED PER ORDER. WILL CONTINUE TO MONITOR.
[2020-09-30] MEDS: ACETAMINOPHEN 325 MG TABLET PO PRN (01:49)
--- NOTE | 2020-09-30 01:49 | NUR ---
PT C/O ACHING PAIN 3/10 ON HER R WRIST , BP 178/78, RR 20, T 97.5, 02 SAT 96% ON 4L OXYGEN VIA NC PER PT REQUEST TYLENOL 650MG PO Q6HR PRN ADMINISTERED PER ORDER. WILL CONTINUE TO MONITOR.
[2020-09-30 05:58] LABS: BASOPHILS % (AUTO) 0.3 % (0.0-2.0); EOSINOPHILS % (AUTO) 0.1 % (0.0-6.0); HEMATOCRIT 38 % (33-45); HEMOGLOBIN 12.3 g/dL (11.5-14.8); LYMPHOCYTES # (AUTO) 1.4 K/uL (0.8-4.8); LYMPHOCYTES % (AUTO) 11.8 % (20.0-44.0); MEAN CORPUSCULAR HGB CONC 33 g/dl (31.0-36.0); MEAN CORPUSCULAR VOLUME 91 fL (82-100); MONOCYTES # (AUTO) 0.8 K/uL (0.1-1.30); MONOCYTES % (AUTO) 6.6 % (2.0-12.0); NEUTROPHILS # (AUTO) 9.4 K/uL (1.8-8.9); NEUTROPHILS % (AUTO) 81.2 % (43.0-81.0); PLATELET COUNT (AUTO) 372 K/uL (150-450); RED BLOOD CELL COUNT(AUTO) 4.15 MIL/uL (4.0-5.2); WHITE BLOOD COUNT (AUTO) 11.6 K/uL (4.3-11.0)
[2020-09-30 06:16] LABS: ALBUMIN 2.5 g/dL (3.4-5.0); BILIRUBIN,DIRECT 0.1 mg/dL (0.0-0.2); BILIRUBIN,TOTAL 0.3 mg/dL (0.2-1.0); CALCIUM, SERUM 8.2 mg/dL (8.5-10.1); CREATININE 0.9 mg/dL (0.6-1.3); POTASSIUM 4.2 mmol/L (3.5-5.1); TOTAL PROTEIN, SERUM 5.7 g/dL (6.4-8.2)
--- NOTE | 2020-09-30 06:30 | NUR ---
RN CLOSING NOTE PT IS IN BED, EASY TO AROUSE. A/OX3. PT IS STABLE ON OXYGEN 4L NC. NO SOB OR RESPIRATORY DISTRESS NOTED. PT IS BR. IV ACCESS L FOREARM G #22 IS INTACT, PATENT, AND FLUSHING WELL. ALL NEEDS HAVE BEEN MET. ALL CARE, NEEDS, MEDICATIONS, AND TREATMENT ADMINISTERED ANTICIPATED PER ORDER. PAIN MANAGEMENT ADMINISTERED PER ORDER. PT ENCOURAGED TO REPOSITION Q2H AND PRN. SAFETY, SEIZURE, AND ASPIRATION PRECAUTIONS MAINTAINED AT ALL TIMES. BED IN LOWEST LOCKED POSITION, HOB ELEVATED, SIDE RAILS UP X2. CALL LIGHT AND TABLE WITHIN REACH. WILL ENDORSE TO ONCOMING NURSE FOR ERASMO.
--- NOTE | 2020-09-30 07:53 | NUR ---
RN NOTE PATIENT IS IN BED WITH HOB AT SEMI STANFORD'S POSITION. PATIENT IS ON 4L NC WITH NO SIGNS OF LABORED BREATHING. LFOREARM 22 IS PATENT AND INTACT. BED IS LOCKED IN THE LOWEST POSITION, 3 GUARD RAILS RAISED, CALL MEERY WITHIN REACH, AND ALL HOSPITAL SAFETY PRECAUTIONS ARE BEING FOLLOWED. WILL CONTINUE OT MONITOR THROUGHOUT SHIFT.
[2020-09-30] MEDS: ASCORBIC ACID 500 MG TABLET PO SCH (08:16)
[2020-09-30] MEDS: CHOLECALCIFEROL 1,000 UNIT TABLET (VIT D3) PO SCH (08:16)
[2020-09-30] MEDS: ASPIRIN 81 MG TAB.CHEW PO SCH (08:17)
[2020-09-30] MEDS: ZINC SULFATE 220 MG CAPSULE PO SCH (08:17)
[2020-09-30] MEDS: DEXAMETHASONE SOD PHOSPHATE 10 MG/ML VIAL IV SCH (08:17)
[2020-09-30] MEDS: LOSARTAN POTASSIUM 50 MG TABLET PO SCH (08:20)
[2020-09-30] MEDS: METOPROLOL TARTRATE 25 MG TABLET PO SCH ×2 (08:20→20:46)
[2020-09-30] MEDS: PANTOPRAZOLE 40 MG TABLET.DR PO SCH (08:20)
[2020-09-30] MEDS: ENSURE ENLIVE 237 ML LIQUID (VANILLA) PO SCH ×2 (09:25→17:11)
[2020-09-30] MEDS ORDERED: hydrALAZINE HCL 25 MG TABLET PO PRN ×2 (11:30→20:30)
[2020-09-30] MEDS: REMDESIVIR (CHARGED) 100 MG in IV NS 0.9% 100 ML IV SCH (12:04)
--- NOTE | 2020-09-30 15:24 | NUR ---
RN NOTE OKAY TO ADMINISTER Q6 PRN HYDRALAZINE 4 HOURS AFTER LAST DOSE PER DR. LUCAS FOR BP OF 165/73. WILL CONTINUE TO MONITOR.
--- NOTE | 2020-09-30 18:44 | NUR ---
RN NOTE PATIENT IS IN BED WITH HOB AT SEMI STANFORD'S POSITION. PATIENT IS ON 4L NC WITH NO SIGNS OF LABORED BREATHING. LFOREARM 22 IS PATENT AND INTACT. BED IS LOCKED IN THE LOWEST POSITION, 3 GUARD RAILS RAISED, CALL EMERY WITHIN REACH, AND ALL HOSPITAL SAFETY PRECAUTIONS ARE BEING FOLLOWED. ALL DUE MEDS GIVEN AND PATIENT REMAINED STABLE THROUGHOUT SHIFT. WILL ENDORSE TO DIRECTOR OF CRITICAL CARE RN.
--- NOTE | 2020-09-30 19:20 | NUR ---
RN OPENING NOTE PATIENT IN BED, AWAKE. A/O X 3, PATIENT CURRENTLY ON 4 L OF O2 SUPPLEMENTATION, BREATHING EVEN AND UNLABORED. PATIENT IS ABLE TO MAKE NEEDS KNOWN. L FOREARM 22 G PATENT AND INTACT. NO COMPLAINS OF PAIN AT THIS TIME. SAFETY MEASURES IN PLACE: BED LOCKED AND IN LOWEST POSITION, CALL LIGHT WITHIN REACH, SIDE RAILS UP. ISOLATION PRECAUTIONS MAINTAINED. WILL MONITOR PATIENT CLOSELY.
--- NOTE | 2020-09-30 20:05 | NUR ---
RN NOTE BP 177/84, NOTIFIED OF SITUATION. CHANGED HYDRALAZINE ORDER TO Q4H PRN, WILL ADMINISTER MED AND RECHECK BP. Addendum: 09/30/20 at 2056 by CHRISTINA HILTON RN PATIENT HAS SCHEDULED METOPROLOL. MED GIVEN, WILL RECHECK, IF BP STILL HIGH, WILL GIVE PRN HYDRALAZINE
[2020-09-30] MEDS: ENOXAPARIN SODIUM 40 MG/0.4 ML DISP.SYRIN SQ SCH (20:41)
[2020-09-30] MEDS: CEFTRIAXONE 1 G in IV D5W 50 ML IV SCH (21:31)
[2020-09-30] MEDS: AZITHROMYCIN 500 MG in IV D5W 250 ML IV SCH (22:12)
--- NOTE | 2020-09-30 22:24 | NUR ---
RN NOTE BP RECHECKED, 178/66. HYDRALAZINE GIVEN, WILL RECHECK IN AN HOUR.
--- NOTE | 2020-09-30 23:30 | NUR ---
RN NOTE BP NOW 149/66.
[2020-10-01] VITALS (7 sets, daily range): BP systolic 131–149; BP diastolic 60–70
[2020-10-01 05:58] LABS: BASOPHILS % (AUTO) 0.4 % (0.0-2.0); EOSINOPHILS % (AUTO) 0.2 % (0.0-6.0); HEMATOCRIT 39 % (33-45); HEMOGLOBIN 12.8 g/dL (11.5-14.8); LYMPHOCYTES # (AUTO) 1.6 K/uL (0.8-4.8); LYMPHOCYTES % (AUTO) 13.6 % (20.0-44.0); MEAN CORPUSCULAR HGB CONC 33 g/dl (31.0-36.0); MEAN CORPUSCULAR VOLUME 90 fL (82-100); MONOCYTES # (AUTO) 0.8 K/uL (0.1-1.30); MONOCYTES % (AUTO) 7.1 % (2.0-12.0); NEUTROPHILS # (AUTO) 9.1 K/uL (1.8-8.9); NEUTROPHILS % (AUTO) 78.7 % (43.0-81.0); PLATELET COUNT (AUTO) 407 K/uL (150-450); RED BLOOD CELL COUNT(AUTO) 4.28 MIL/uL (4.0-5.2); WHITE BLOOD COUNT (AUTO) 11.6 K/uL (4.3-11.0)
[2020-10-01 06:48] LABS: ALBUMIN 2.5 g/dL (3.4-5.0); BILIRUBIN,DIRECT 0.1 mg/dL (0.0-0.2); BILIRUBIN,TOTAL 0.3 mg/dL (0.2-1.0); CALCIUM, SERUM 8.2 mg/dL (8.5-10.1); CREATININE 0.8 mg/dL (0.6-1.3); POTASSIUM 4.4 mmol/L (3.5-5.1); TOTAL PROTEIN, SERUM 5.9 g/dL (6.4-8.2)
--- NOTE | 2020-10-01 07:15 | NUR ---
RN CLOSING NOTE PATIENT IN BED EYES CLOSED, EASILY AWAKENED. NOT IN ANY APPARENT DISTRESS. NO SIGNIFICANT CHANGES DURING THE SHIFT. ENDORSED TO RN ESTEPHANIA FOR ERASMO.
--- NOTE | 2020-10-01 07:30 | NUR ---
RN OPENING NOTES Patient was received in bed. On 4 lpm via n/c. HOB kept elevated. No s/s of respiratory distress. No c/o pain or discomfort. Iv site to left foreamr noted with saline lock. Will continue to monitor. Call light with in reach.
[2020-10-01] MEDS: CHOLECALCIFEROL 1,000 UNIT TABLET (VIT D3) PO SCH (09:11)
[2020-10-01] MEDS: ZINC SULFATE 220 MG CAPSULE PO SCH (09:11)
[2020-10-01] MEDS: ASCORBIC ACID 500 MG TABLET PO SCH (09:12)
[2020-10-01] MEDS: LOSARTAN POTASSIUM 50 MG TABLET PO SCH (09:14)
[2020-10-01] MEDS: METOPROLOL TARTRATE 25 MG TABLET PO SCH ×2 (09:14→20:31)
[2020-10-01] MEDS: ASPIRIN 81 MG TAB.CHEW PO SCH (09:14)
[2020-10-01] MEDS: ENSURE ENLIVE 237 ML LIQUID (VANILLA) PO SCH ×2 (09:15→16:31)
[2020-10-01] MEDS: DEXAMETHASONE SOD PHOSPHATE 10 MG/ML VIAL IV SCH (09:15)
[2020-10-01] MEDS: PANTOPRAZOLE 40 MG TABLET.DR PO SCH (09:20)
[2020-10-01] MEDS: REMDESIVIR (CHARGED) 100 MG in IV NS 0.9% 100 ML IV SCH (12:07)
--- NOTE | 2020-10-01 18:15 | NUR ---
RN OPENING NOTES Patient was received in bed. On 4 lpm via n/c. HOB kept elevated. No s/s of respiratory distress. No c/o pain or discomfort. Iv site to left foreamr noted with saline lock. Will continue to monitor. Call light with in reach. Addendum: 10/01/20 at 1827 by ISA AMARAL RN WRONG ENTRY; DISREGARD
--- NOTE | 2020-10-01 19:05 | NUR ---
RN CLOSING NOTES Patient was received in bed. On 4 lpm via n/c. HOB kept elevated. No s/s of respiratory distress. No c/o pain or discomfort. Iv site to left forearm saline lock. Patient had a bm x 1 during shift and assisted with brief change x 3. HOB kept elevated. Will continue to monitor. Call light with in reach.Endorsed to next shift for ERASMO.
--- NOTE | 2020-10-01 20:00 | NUR ---
BARGAIN TABLE CLERK OPENING NOTE RECEIVED PT IN BED WITH EYES CLOSED, AROUSABLE TO STIMULATION. A/O X3. PT IS ON 2 LPM O2 VIA NC SATURATING AT 95%. NO SOB OR S/S OF RESPIRATORY DISTRESS NOTED. PT ON EXTERNAL PLANE CAPTAIN READING SR AT 69 BPM. PT HAS NO C/O PAIN OR DISCOMFORT AT THIS TIME. IV ACCESS IN LFA #22, INTACT AND PATENT. SAFETY MEASURES MAINTAINED. BED IN LOWEST LOCKED POSITION, HOB ELEVATED, SIDE RAILS UP X2. CALL LIGHT AND TABLE WITHIN REACH. WILL CONTINUE WITH PLAN OF CARE.
[2020-10-01] MEDS: ENOXAPARIN SODIUM 40 MG/0.4 ML DISP.SYRIN SQ SCH (20:42)
[2020-10-02] VITALS: BP 140/65
[2020-10-02 04:00] VITALS: BP 135/62
--- NOTE | 2020-10-02 06:04 | NUR ---
SWITCHER CLOSING NOTE PT IS IN BED WITH EYES CLOSED, AROUSABLE TO STIMULATION. A/O X3. PT IS ON 2 LPM O2 VIA NC SATURATING AT 98%. NO SOB OR S/S OF RESPIRATORY DISTRESS NOTED. PT ON EXTERNAL BOX FOLDING MACHINE OPERATOR READING SR AT 65 BPM. PT HAS NO C/O PAIN OR DISCOMFORT AT THIS TIME. IV ACCESS IS INTACT, PATENT, AND FLUSHING WELL. ALL NEEDS HAVE BEEN MET. SAFETY AND ISOLATION PRECAUTIONS MAINTAINED AT ALL TIMES. BED IN LOWEST LOCKED POSITION, HOB ELEVATED, SIDE RAILS UP X2. CALL LIGHT AND TABLE WITHIN REACH. WILL ENDORSE TO ONCOMING NURSE FOR ERASMO.
[2020-10-02 06:46] LABS: BASOPHILS % (AUTO) 0.1 % (0.0-2.0); EOSINOPHILS % (AUTO) 0.1 % (0.0-6.0); HEMATOCRIT 38 % (33-45); HEMOGLOBIN 12.9 g/dL (11.5-14.8); LYMPHOCYTES # (AUTO) 1.6 K/uL (0.8-4.8); LYMPHOCYTES % (AUTO) 12.5 % (20.0-44.0); MEAN CORPUSCULAR HGB CONC 34 g/dl (31.0-36.0); MEAN CORPUSCULAR VOLUME 90 fL (82-100); MONOCYTES % (AUTO) 7.8 % (2.0-12.0); NEUTROPHILS # (AUTO) 10.1 K/uL (1.8-8.9); NEUTROPHILS % (AUTO) 79.5 % (43.0-81.0); PLATELET COUNT (AUTO) 428 K/uL (150-450); RED BLOOD CELL COUNT(AUTO) 4.26 MIL/uL (4.0-5.2); WHITE BLOOD COUNT (AUTO) 12.7 K/uL (4.3-11.0)
--- NOTE | 2020-10-02 07:54 | NUR ---
HOSPICE HOME HEALTH AIDE OPENING NOTES RECEIVED PATIENT AWAKE IN BED. ALERT AND ORIENTED X3. NO SIGNS OR SYMPTOMS OF DISTRESS NOTED. BREATHING IS EVEN AND UNLABORED. NO COMPLAINTS OF PAIN AT THIS TIME. IV ACCESS LFA#22 PATENT AND INTACT, FLUSHING WELL. PATIENT IS ON NC 2L WITH SPO2 SATURATING AT 94%. PATIENT ON EXTERNAL TELE MONITOR WITH READING SR HR 62. SAFETY MEASURES ARE IN PLACE WITH BED LOCKED AT LOW POSITION, SIDE RAILS UP X 2. WILL CONTINUE TO MONITOR THROUGHOUT SHIFT.
[2020-10-02 08:00] VITALS: BP 122/63
[2020-10-02 08:17] LABS: CALCIUM, SERUM 8.4 mg/dL (8.5-10.1); CREATININE 0.9 mg/dL (0.6-1.3); POTASSIUM 4.6 mmol/L (3.5-5.1)
[2020-10-02] MEDS: PANTOPRAZOLE 40 MG TABLET.DR PO SCH (08:24)
[2020-10-02] MEDS: ASCORBIC ACID 500 MG TABLET PO SCH (08:55)
[2020-10-02] MEDS: CHOLECALCIFEROL 1,000 UNIT TABLET (VIT D3) PO SCH (08:55)
[2020-10-02] MEDS: METOPROLOL TARTRATE 25 MG TABLET PO SCH ×2 (08:55→21:43)
[2020-10-02] MEDS: ASPIRIN 81 MG TAB.CHEW PO SCH (08:55)
[2020-10-02] MEDS: DEXAMETHASONE SOD PHOSPHATE 10 MG/ML VIAL IV SCH (08:55)
[2020-10-02] MEDS: ZINC SULFATE 220 MG CAPSULE PO SCH (08:55)
[2020-10-02] MEDS: LOSARTAN POTASSIUM 50 MG TABLET PO SCH (08:56)
[2020-10-02] MEDS: ENSURE ENLIVE 237 ML LIQUID (VANILLA) PO SCH ×2 (08:56→16:40)
[2020-10-02 12:00] VITALS: BP 123/61
[2020-10-02 16:00] VITALS: BP 102/52
--- NOTE | 2020-10-02 18:43 | NUR ---
patient room air sat at rest 86%,cm notified for home oxygen per md.
--- NOTE | 2020-10-02 18:56 | NUR ---
ACCESS CLINICIAN CLOSING NOTES PATIENT IS AWAKE IN BED. ALERT AND ORIENTED X3. NO SIGNS OR SYMPTOMS OF DISTRESS NOTED. BREATHING IS EVEN AND UNLABORED. NO COMPLAINTS OF PAIN AT THIS TIME. IV ACCESS LFA#22 PATENT AND INTACT, FLUSHING WELL. PATIENT IS ON NC 2L WITH SPO2 SATURATING AT 94-96 %. PATIENT REMOVED FROM EXTERNAL TELE MONITOR PER MD ORDER. SAFETY MEASURES MAINTAINED WITH BED LOCKED AT LOW POSITION, SIDE RAILS UP X 2. WILL ENDORSE CONTINUITY OF CARE TO ONCOMING SHIFT..
[2020-10-02 20:00] VITALS: BP 145/67
[2020-10-02] MEDS: ENOXAPARIN SODIUM 40 MG/0.4 ML DISP.SYRIN SQ SCH (21:43)
[2020-10-03 04:00] VITALS: BP 114/62
--- NOTE | 2020-10-03 07:22 | NUR ---
RN NOTES PATIENT RECEIVED IN BED, SLEEPING EASILY AWAKEN, FARSI SPEAKING. ON NASAL CANNULA 2 LITERS, NO SIGNS OF RESPIRATORY DISTRESS, WITH EVEN NON-LABORED BREATHING. SKIN WARM AND DRY TO TOUCH. PATIENT DENIES ANY PAIN OR DISCOMFORT AT THIS TIME. SAFETY PRECAUTIONS IMPLEMENTED WITH BED LOCKED, BILATERAL SIDE RAILS UP, BED ALARM ON, AND CALL LIGHT WITHIN EASY REACH. WILL CONTINUE TO MONITOR PATIENT.
[2020-10-03 08:00] VITALS: BP 111/61
[2020-10-03] MEDS: PANTOPRAZOLE 40 MG TABLET.DR PO SCH (08:23)
[2020-10-03] MEDS: DEXAMETHASONE SOD PHOSPHATE 10 MG/ML VIAL IV SCH ×2 (08:23→09:00)
[2020-10-03] MEDS: CHOLECALCIFEROL 1,000 UNIT TABLET (VIT D3) PO SCH (08:23)
[2020-10-03] MEDS: ASPIRIN 81 MG TAB.CHEW PO SCH (08:23)
[2020-10-03] MEDS: ZINC SULFATE 220 MG CAPSULE PO SCH (08:23)
[2020-10-03] MEDS: ASCORBIC ACID 500 MG TABLET PO SCH (08:23)
[2020-10-03] MEDS: LOSARTAN POTASSIUM 50 MG TABLET PO SCH (08:24)
[2020-10-03 08:25] VITALS: BP 111/61
[2020-10-03] MEDS: METOPROLOL TARTRATE 25 MG TABLET PO SCH (08:25)
[2020-10-03] MEDS: ENSURE ENLIVE 237 ML LIQUID (VANILLA) PO SCH (08:30)
[2020-10-03] MEDS ORDERED: ENOX40DI SQ (10:57)
[2020-10-03] MEDS ORDERED: DEXA4TAB PO (10:57)
[2020-10-03] MEDS ORDERED: DEXAMETHASONE 4 MG TABLET PO ONE (11:00)
--- NOTE | 2020-10-03 12:38 | NUR ---
TELEMARKETING SUPERVISOR NOTES PATIENT ALERT AND ORIENTED X3. PATIENT VITAL SIGNS WITHIN NORMAL LIMITS, PATIENT ON NASAL CANNULA 2 LITER, BEING DISCHARGE TO HOME WITH OXYGEN. PATIENT ACCOUNTED FOR ALL BELONGINGS. SKIN KEPT CLEAN, WARM AND DRY, SKIN ASSESSMENT DONE AND INTACT. EXIT CARE PROVIDED. WITH MEDICATION SENT TO PREFERRED PHARMACY. MET ALL OF PATIENTS NEEDS. PATIENT LEFT UNIT VIA WHEELCHAIR, LEFT HOSPITAL VIA PRIVATE CAR WITH DAUGHTER.
== END 2020-10-03 12:32 | disposition home health service (06) | DRG 177 ==
LOC: ER 20:08 → TELE1 21:57 → MEDSG1 10-02 13:12
PROVIDERS: ADMIT Internal Medicine; ATTEND Nurse Practitioner Acute Care
PROC: XW033H5 Introduction of Tocilizumab into Peripheral Vein, Percutaneous Approach, New Technology Group 5 (ICD-10-PCS; principal; 2020-09-27)
PROC: XW033E5 Introduction of Remdesivir Anti-infective into Peripheral Vein, Percutaneous Approach, New Technology Group 5 (ICD-10-PCS; 2020-09-27)
DX: U07.1 COVID-19 (principal); J96.01 Acute respiratory failure with hypoxia; J12.89 Other viral pneumonia; J12.82 Pneumonia due to coronavirus disease 2019; N39.0 Urinary tract infection, site not specified; D68.59 Other primary thrombophilia; E44.0 Moderate protein-calorie malnutrition; J98.11 Atelectasis; J90 Pleural effusion, not elsewhere classified; E78.5 Hyperlipidemia, unspecified; Z79.82 Long term (current) use of aspirin; Z79.899 Other long term (current) drug therapy; I11.0 Hypertensive heart disease with heart failure; I50.9 Heart failure, unspecified; Z74.09 Other reduced mobility; I70.0 Atherosclerosis of aorta; T38.0X5A Adverse effect of glucocorticoids and synthetic analogues, initial encounter; Y92.9 Unspecified place or not applicable; R73.9 Hyperglycemia, unspecified; D72.829 Elevated white blood cell count, unspecified
CPT/HCPCS: 36415; 36600; 71045-TC; 80048-TC; 80053-TC; 80061-TC; 80076-TC; 81001; 82248-TC; 82550-TC; 82728-TC; 83605-TC; 83615-TC; 83735-TC; 83880; 84100-TC; 84439-TC; 84443-TC; 84484-TC; 85025-TC; 85378-TC; 85610-TC; 85730-TC; 86140-TC; 87040-TC; 87081-TC; 93307-TC; 97116-TC; 97530-TC; A4216; G0378; J0456; J0696; J1100; J1650; J7030; J7050; J7060; J8540